=== PATIENT | female | born 1980 | race Caucasian/White ===

== ENCOUNTER → 2018-05-29 | Outpatient (CLI) | payer OTHER ==
--- NOTE | 2018-05-30 08:35 | RAD ---
Bilateral lower extremity arterial ultrasound, 05/29/2018: HISTORY: Cold feet, discoloration Duplex evaluation of the major arteries in both lower extremities was performed including grayscale, color-flow and spectral Doppler analysis. The common femoral, superficial femoral and popliteal Doppler waveforms are triphasic bilaterally. No significant focal velocity acceleration is seen in these vessels to suggest significant focal stenosis. Patent posterior tibial, peroneal and anterior tibial arteries are present in both lower legs demonstrating triphasic Doppler waveforms. The dorsalis pedis arteries are patent with similar triphasic Doppler waveforms. IMPRESSION: No duplex evidence of significant arterial occlusive disease in either lower extremity. Electronically signed by: Efrem Winkler MD (05/30/2018 8:32 AM) [facility]
== END | disposition home or self-care (01) ==
LOC: US 14:06
PROVIDERS: ATTEND Physician Assistant
DX: I99.8 Other disorder of circulatory system (principal); R10.11 Right upper quadrant pain
CPT/HCPCS: 93925